=== PATIENT | female | born 1940 | race Caucasian/White ===

== ENCOUNTER 2021-06-25 16:32 | Inpatient (IN) | payer MEDICARE ==
[~2021-06-25] VITALS: Ht 167.6 cm; Wt 79.4 kg
--- NOTE | ~2021-06-25 | EKG ---
[place] [address] ELECTROCARDIOGRAM REPORT Name: PRIYANKA RIVERS Room: [place] [address] ADM IN 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
[2021-06-25 16:48] VITALS: BP 204/67
[2021-06-25] MEDS ORDERED: NORVASC10 MG PO (17:12)
[2021-06-25] MEDS ORDERED: LEVO-T25 MCG PO (17:13)
[2021-06-25] MEDS ORDERED: LOVASTATIN 20 M20 MG PO (17:14)
[2021-06-25] MEDS ORDERED: PROTONIX40 M2 PO (17:15)
[2021-06-25] MEDS ORDERED: ASA81BEC PO (17:16)
[2021-06-25] MEDS ORDERED: METFORMIN HCL500 M3 (17:16)
[2021-06-25 17:32] LABS: ABSOLUTE BASOPHILS 0.1 thou/uL (0.0-0.2); ABSOLUTE EOSINOPHILS 0.2 thou/uL (0.0-0.7); ABSOLUTE LYMPHOCYTES 1.7 thou/uL (0.8-5.3); ABSOLUTE MONOCYTES 0.7 thou/uL (0.0-1.2); ABSOLUTE NEUTROPHILS 8.6 thou/uL (1.6-8.1); BASOPHILS 0.7 %; EOSINOPHILS 1.6 %; HEMATOCRIT 38.5 % (37.0-47.0); HEMOGLOBIN 12.9 gm/dL (12.0-15.0); LYMPHOCYTES 15.5 %; MCH 27.1 pg (26.0-34.0); MCHC 33.4 g/dL (28.0-37.0); MCV 81.2 fL (80.0-100.0); MPV 7.7 fl. (7.2-11.1); NUCLEATED RBCS 0 /100WBC; PLATELET COUNT* 323 thou/uL (150-400); POLYS 76.2 %; RBC 4.74 mil/uL (4.20-5.00); RDW-CV 13.3 % (10.5-14.5); WBC 11.3 thou/uL (4.0-11.0)
[2021-06-25 17:46] LABS: CALCIUM 8.4 mg/dL (8.5-10.1); CREATININE 1.2 mg/dL (0.6-1.3); POTASSIUM 3.7 mmol/L (3.5-5.1)
[2021-06-25 17:52] LABS: ALBUMIN 4.1 g/dL (3.4-5.0); MAGNESIUM 1.9 mg/dL (1.8-2.4); TOTAL BILIRUBIN 0.1 mg/dL (<0.1-1.0); TOTAL PROTEIN 8.1 g/dL (6.4-8.2)
[2021-06-25 22:07] VITALS: BP 177/76
[2021-06-26 01:45] VITALS: BP 156/62
[2021-06-26 06:11] VITALS: BP 168/58
[2021-06-26 10:27] VITALS: BP 165/60
--- NOTE | 2021-06-26 13:24 | NUR ---
Admission Assessment Admitted from pt drove self to ER Mental Status upon admission Alert & Oriented x 3 Living Arrangements: Stairs Elevator Senior Apartment Sold home Moved from [place] in March 2021 to be closer to children passed 7 years ago Lives with: or they live with patient Alone Support system: Name Phone number Johny Morrison [phone] Dtr Can patient return to prior living arrangements? 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 Prior resource use: None States no hx of HH, ARU, Or SNU Does patient have a primary care provider? -No PCP is in [place], [place] and she has not found new one here closer to her new apartment. Stated someone in ER gave her a list of [facility] for her to review. CM will continue to follow for any disharge needs that may be identified.
[2021-06-26 14:00] VITALS: BP 168/69
--- NOTE | 2021-06-26 15:28 | EKG ---
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: : 1940 Requested By: Bg Stuart Order Number: [id number] MD: Kel Paige Measurements Intervals [place] Rate: 90 P: 62 MT: 181 QRS: -51 QRSD: 108 T: 105 QT: 382 QTc: 468 Interpretive Statements Sinus rhythm Left anterior fascicular block Anteroseptal infarct, old possible Abnormal T, consider ischemia, lateral leads No previous ECG available for comparison Electronically Signed On 06-26-2021 15:27:59 CDT by Kel Paige [email or web address] <ELECTRONICALLY SIGNED> By: Kel Paige MD, [facility] 06/26/21 1527 1651 1651 Kel Paige MD, [facility] /EPI
--- NOTE | 2021-06-26 16:42 | 2DMMODE ---
[place] [address] 2 D/M-MODE ECHOCARDIOGRAM Name: PRIYANKA RIVERS Room: [place] [address] ADM IN [place].#: [id number] Admission: 06/25/21 Attend Phys: Trista Mccarthy, Discharge: Date of : 36 Date of Service: 06/26/21 1642 Report #: [id number] THIS REPORT FOR: cc: FAM - No family physician/PCP FAM - No family physician/PCP Demario Dunn MD [facility] ~ APPROVED REPORT Study performed: 06/26/2021 14:40:49 EXAM: Comprehensive 2D, Doppler, and color-flow Echocardiogram Patient Location: In-Patient Room #: er Status: routine BSA: 1.89 HR: 85 bpm BP: 168/69 mmHg Rhythm: NSR Other Information Study Quality: Good Indications Hypertension/HDD 2D Dimensions IVSd: 13.04 (7-11mm) LVOT Diam: 19.32 (18-24mm) LVDd: 36.36 mm PWd: 10.27 (7-11mm) Ascending Ao: 30.52 (22-36mm) LVDs: 18.05 (25-40mm) Aortic Root: 29.94 mm Volumes Left Atrial Volume (Systole) LA ESV Index: 18.80 mL/m2 Aortic Valve AoV Peak Walker.: 1.36 m/s AO Peak Gr.: 7.44 mmHg LVOT Max P.22 mmHg AO Mean Gr.: 4.61 mmHg LVOT Mean P.11 mmHg LVOT Max V: 1.03 m/s AO V2 VTI: 27.76 cm LVOT Mean V: 0.67 m/s PAVAN (VTI): 2.26 cm2 LVOT V1 VTI: 21.37 [place] [address] 2 D/M-MODE ECHOCARDIOGRAM Name: PRIYANKA RIVERS Room: [address] IN [facility]#: [id number] Admission: 06/25/21 Attend Phys: Trista Mccarthy, Discharge: Date of : 36 Date of Service: 06/26/21 1642 Report #: [id number] Mitral Valve E/A Ratio: 0.67 MV Decel. Time: 224.54 ms MV E Max Walker.: 0.91 m/s MV PHT: 65.12 ms MVA (PHT): 3.38 cm2 TDI E/Lateral E': 10.11 E/Medial E': 11.38 Medial E' Walker.: 0.08 m/s Lateral E' Walker.: 0.09 m/s Pulmonary Valve PV Peak Walker.: 1.09 m/s PV Peak Gr.: 4.76 mmHg Tricuspid Valve RAP Estimate: 5.00 mmHg TR Peak Gr.: 21.23 mmHg RVSP: 26.00 mmHg PA Pressure: 26.00 mmHg Left Ventricle The left ventricle is normal size. There is normal LV segmental wall motion. Mild concentric left ventricular hypertrophy. Left ventricular systolic function is normal. LVEF is 60-65%. Grade I - abnormal relaxation pattern. Right Ventricle The right ventricle is normal size. The right ventricular systolic function is normal. Atria The left atrium size is normal. The right atrium size is normal. Aortic Valve The aortic valve is normal in structure. No aortic regurgitation is present. There is no aortic valvular stenosis. Mitral Valve The mitral valve is normal in structure. Trace mitral regurgitation. No evidence of mitral valve stenosis. Tricuspid Valve The tricuspid valve is normal in structure. Trace tricuspid regurgitation. [place] [address] 2 D/M-MODE ECHOCARDIOGRAM Name: PRIYANKA RIVERS Room: [address] IN [facility]#: [id number] Admission: 06/25/21 Attend Phys: Trista Mccarthy, Discharge: Date of : 36 Date of Service: 06/26/21 1642 Report #: [id number] Pulmonic Valve The pulmonary valve is normal in structure. There is no pulmonic valvular regurgitation. Great Vessels The aortic root is normal in size. IVC is normal in size and collapses >50% with inspiration. Pericardium There is no pericardial effusion. <Conclusion> The left ventricle is normal size. Mild concentric left ventricular hypertrophy. Left ventricular systolic function is normal. LVEF is 60-65%. Grade I - abnormal relaxation pattern. Trace mitral regurgitation. Trace tricuspid regurgitation. No pulmonary hypertension. IVC is normal in size and collapses >50% with inspiration. <ELECTRONICALLY SIGNED> By: Demario Dunn MD, FACC 06/26/211641 41 41 Demario Dunn MD, FACC /INF
[2021-06-26 18:00] VITALS: BP 160/61
--- NOTE | 2021-06-26 19:07 | NUR ---
ASSUMED CARE AT 1900. REPORT TAKEN FROM BEE SY
[2021-06-26 22:30] VITALS: BP 160/63
[2021-06-27] VITALS (7 sets, daily range): BP systolic 123–155; BP diastolic 50–63
[2021-06-27 04:47] LABS: ABSOLUTE BASOPHILS 0.1 thou/uL (0.0-0.2); ABSOLUTE EOSINOPHILS 0.2 thou/uL (0.0-0.7); ABSOLUTE LYMPHOCYTES 1.7 thou/uL (0.8-5.3); ABSOLUTE MONOCYTES 0.6 thou/uL (0.0-1.2); ABSOLUTE NEUTROPHILS 6.4 thou/uL (1.6-8.1); BASOPHILS 0.8 %; EOSINOPHILS 2.6 %; HEMATOCRIT 37.6 % (37.0-47.0); HEMOGLOBIN 12.3 gm/dL (12.0-15.0); LYMPHOCYTES 18.7 %; MCHC 32.8 g/dL (28.0-37.0); MCV 82.2 fL (80.0-100.0); MPV 8.2 fl. (7.2-11.1); NUCLEATED RBCS 0 /100WBC; PLATELET COUNT* 287 thou/uL (150-400); POLYS 70.9 %; RBC 4.57 mil/uL (4.20-5.00); RDW-CV 13.2 % (10.5-14.5); WBC 9.1 thou/uL (4.0-11.0)
--- NOTE | 2021-06-27 05:16 | NUR ---
PT A&OX4, VSS ON ROOM AIR. PT UP WITH SBA TO BSC. IV SALINE LOCKED. PT SR ON TELE MONTIOR. NO CO PAIN OR DISCOMFORT. ASSESSMENTS AND HOURLY ROUNDINGS COMPLETE, WILL CONTINUE TO MONITOR.
[2021-06-27 05:17] LABS: CALCIUM 8.3 mg/dL (8.5-10.1); CREATININE 1.2 mg/dL (0.6-1.3); POTASSIUM 3.8 mmol/L (3.5-5.1)
--- NOTE | 2021-06-27 11:59 | NUR ---
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 KEVIN BATEMANT
[2021-06-27] MEDS ORDERED: ZOLOFT25 MG PO (12:22)
[2021-06-27] MEDS ORDERED: LISINOPRIL5 MG PO (12:23)
--- NOTE | 2021-06-27 15:14 | NUR ---
PLAN OF CARE: PHYSICIAN INFORMS OF PLAN FOR PT TO D/C HOME TODAY WITH HH. CM SPOKE TO THE PT AND HER DTR AT THE BEDSIDES TO DISCUSS THIS. PT RESISTANT, BUT WITH DTR'S ENCOURAGEMENT IS IN AGREEMENT WITH D/C HOME WITH HH. CM DISCUSSED HAVING SOMEONE STAY WITH THE PT OR HAVING THE PT STAY AT A FAMILY MEMBERS HOME. PT SEEMS RESSISTANT TO ALL SUGGESTIONS, BUT HER DTR IS RECEPTIVE AND PLANS TO REACH OUT TO FAMILY. CM ALSO PROVIDED PT AND HER DTR WITH PRINTED CAREGIVER ASSISTANCE INFO AND EDUCATION. PT AND HER DTR HAVE NO PREFERENCE OF HH PROVIDER. CM SUGGESTED THAT THEY TRY [facility] THIS COMPANY SERVICES THE PT'S AREA, IS IN-NETWORK, AND HAS BOTH HH AND CAREGIVER ASSISTANCE. PT AND HER DTR IN AGREEMENT. CM WILL REMAIN AVAILABLE TO ASSIST AND FOLLOW NEEDED. [facility] PHONE: [phone] FAX: [phone]
--- NOTE | 2021-06-27 19:46 | NUR ---
ASSUMED PT CARE AT 0730, PT AOX4 BUT FORGETFUL. PT C/O DEPRESSION AND STATES SHE USED TO TAKE [employer]OLOFT AND IT WORKED WELL FOR HER. DR BROOKS SENT SCRIPT FOR [employer] AND PUT IN DC ORDERS. PT UPSET ABOUT BEING DC'D STATING SHE'S NOT EVEN ABLE TO GET UP TO THE BATHROOM BY HERSELF. PT GOT PT UP, SEE NOTES, I ALSO GOT PT UP THIS SHIFT AND SHE DID NOT NEED ASSISTANCE, THOUGH SHE CHOSE TO HOLD MY HANDS BUT DID NOT RELY ON ME FOR STEADINESS. EXPLAINED TO PT THAT SHE WAS INDEPENDENT BEFORE THIS AND DID WELL W/ PT AND W/ ME TODAY AND THAT SHE WILL HAVE HH COME SEE HER AT HOME TOO. CM CAME TO SPEAK TO PT ABOUT OPTIONS WHICH DON'T WORK FOR PT SINCE SHE CAN'T AFFORD A HIGHER LEVEL OF CARE AND DOESN'T QUALIFY AT THIS TIME. PT DC'D BY WC W/ NURSING STAFF AND ALL PAPERWORK AND BELONGINGS TO DAUGHTER'S VEHICLE AT APPROX 1615. IV AND PLUMBING FOREMAN REMOVED.
== END 2021-06-27 16:15 | disposition home health service (06) | DRG 305 ==
LOC: M.ERS 16:32 → M.TBA-ER 18:20 → M.2W 06-26 23:52
PROVIDERS: Emergency Medicine Emergency Medical Services; Internal Medicine; ADMIT Internal Medicine; ATTEND Internal Medicine
DX: I16.0 Hypertensive urgency (principal); F41.0 Panic disorder [episodic paroxysmal anxiety]; E11.9 Type 2 diabetes mellitus without complications; E03.9 Hypothyroidism, unspecified; Z20.822 Contact with and (suspected) exposure to COVID-19; Z79.84 Long term (current) use of oral hypoglycemic drugs; Z79.82 Long term (current) use of aspirin; Z79.899 Other long term (current) drug therapy